=== PATIENT | male | born 1980 | race Asian ===

== ENCOUNTER 2016-10-25 22:02 | Emergency (ER) | payer BC, OTHER ==
[~2016-10-25] VITALS: Ht 182.9 cm; Wt 61.2 kg
[2016-10-25 22:56] VITALS: BP 116/71; PULSE 100; RESP 18; TEMP 98.6; O2SAT 98
--- NOTE | 2016-10-25 23:25 | NUR ---
Placed in room 08 . Placed on logging supervisor, blood pressure machine and pulse oximeter. To gown for exam. Side rails up. Report given to ADRIEL Youssef.
--- NOTE | 2016-10-25 23:30 | NUR ---
Patient AAO X4, sitting in bed, c/o swelling and pain to right finger. Patient stated he was washing dishes and cut himself when he was washing a knife, patient states he went to an urgent care and they "glued" his finger. Patient states the increase in swelling and pain has him worried that he may have an infection. No redness noted to injured finger, minor swelling noted, no drainage. No acute distress noted. Will continue to monitor.
--- NOTE | 2016-10-25 23:45 | NUR ---
ER at bedside examining patient.
[2016-10-26 01:30] VITALS: BP 115/72; PULSE 85; RESP 18; TEMP 98.6; O2SAT 98
--- NOTE | 2016-10-26 01:30 | NUR ---
Patient given written and verbal discharge instructions and verbalizes understanding. ER MD discussed with patient the results and treatment provided. Patient in stable condition. ID arm band removed. Patient educated on pain management and to follow up with PMD. Pain Scale 0/10. Opportunity for questions provided and answered.
== END 2016-10-26 01:30 | disposition home or self-care (01) ==
LOC: SED 22:02
DX: S61.210A Laceration without foreign body of right index finger without damage to nail, initial encounter (principal); W26.0XXA Contact with knife, initial encounter; Y93.89 Activity, other specified; Y92.89 Other specified places as the place of occurrence of the external cause; Y99.8 Other external cause status
CPT/HCPCS: 99283